=== PATIENT | female | born 1950 | race Caucasian/White ===

== ENCOUNTER → 2023-12-28 13:56 | Outpatient (BNVA) | payer MEDICARE, SELFPAY | PROVIDERS: PCP Physician Assistant Medical; Referring Provider Physician Assistant Medical; Visit Provider Nurse Practitioner Adult Health | DX: R41.89 Other symptoms and signs involving cognitive functions and awareness (principal) | CPT/HCPCS: 99205 ==

== ENCOUNTER → 2024-03-28 09:15 | Outpatient (BNVA) | payer MEDICARE, SELFPAY | PROVIDERS: PCP Physician Assistant Medical; Referring Provider Physician Assistant Medical; Visit Provider Nurse Practitioner Adult Health | DX: R41.89 Other symptoms and signs involving cognitive functions and awareness (principal) ==

== ENCOUNTER → 2024-04-05 13:33 | Outpatient (BNVA) | payer MEDICARE, SELFPAY | PROVIDERS: PCP Physician Assistant Medical; Referring Provider Physician Assistant Medical; Visit Provider Nurse Practitioner Adult Health | DX: R41.89 Other symptoms and signs involving cognitive functions and awareness (principal) | CPT/HCPCS: 99215 ==

== ENCOUNTER → 2024-05-30 09:55 | Outpatient (BNVA) | payer MEDICARE, SELFPAY | PROVIDERS: PCP Physician Assistant Medical; Referring Provider Physician Assistant Medical; Visit Provider Physician Assistant Surgical | DX: R06.00 Dyspnea, unspecified (principal); R41.89 Other symptoms and signs involving cognitive functions and awareness | CPT/HCPCS: 99215 ==

== ENCOUNTER → 2024-06-26 10:24 | Outpatient (BNVA) | payer MEDICARE, SELFPAY | PROVIDERS: PCP Physician Assistant Medical; Referring Provider Physician Assistant Medical; Visit Provider Physician Assistant Surgical | DX: R06.00 Dyspnea, unspecified (principal); R41.89 Other symptoms and signs involving cognitive functions and awareness | CPT/HCPCS: 99215 ==

== ENCOUNTER 2024-07-06 03:20 | Outpatient (CLI) | payer MEDICARE, SELFPAY ==
--- NOTE | 2024-07-10 14:22 | PDOC.EEG_ITS ---
Neurology EEG EEG: [facility] Department of Neurology LONG-TERM AMBULATORY EEG REPORT Date of Recordin07/06/24 at 13:39:37 to 07/07/24 at 10:32:46 Interpreting Physician: Dr. Janice Simons PCP/Referring Provider: Mily Marinelli NP Reason for study: Ms. Shepard has been having spells in which she is staring and unaware of her surroundings, concerning for seizure. Current Medications: Home Medications ?Medication ?Instructions ?Recorded ?Confirmed ?Type L.acidoph, paracasei,B. lactis 10 cell PO DAILY 07/15/23 04/05/24 History billion cell capsule (Digestive Advantage Advanced Probiotic) acetaminophen 325 mg tablet 325 mg PO ONCE PRN 07/15/23 06/26/24 History (Tylenol) apixaban 5 mg tablet (Eliquis) 5 mg PO BID 07/15/23 06/26/24 History cholecalciferol (vitamin D3) 25 25 mcg PO DAILY 07/15/23 05/30/24 History mcg (1,000 unit) capsule diltiazem HCl 120 mg 120 mg PO DAILY 07/15/23 06/26/24 History capsule,extended release 12 hr diltiazem HCl 60 mg 60 mg PO DAILY 07/15/23 05/30/24 History capsule,extended release 12 hr folic acid 1 mg tablet 1 mg PO DAILY 07/15/23 06/26/24 History levothyroxine 50 mcg capsule 50 mcg PO DAILY 07/15/23 06/26/24 History multivitamin 1 tab PO DAILY 07/15/23 06/26/24 History omega 2-zvp-udu-fish oil 1,200 mg cap PO DAILY 07/15/23 06/26/24 History (144 mg-216 mg) capsule propranolol 20 mg tablet 20 mg PO TID 07/15/23 06/26/24 History tolterodine 4 mg capsule,extended 4 mg PO DAILY 07/15/23 05/30/24 History release 24 hr lorazepam 0.5 mg tablet 0.5 mg PO DAILY PRN anxiety #2 tabs 12/28/23 05/30/24 Rx rivastigmine 4.6 mg/24 hour 4.6 mg transdermal DAILY 12/29/23 06/26/24 History transdermal patch vortioxetine 10 mg tablet 10 mg PO DAILY 03/28/24 06/26/24 History (Trintellix) duloxetine See Rx Instructions PO DIRECTED 05/01/24 History buspirone See Rx Instructions .Route 05/30/24 06/26/24 History DIRECTED levalbuterol tartrate 45 2 inh inhalation Q6H #15 grams 05/30/24 06/26/24 Rx mcg/actuation aerosol inhaler quetiapine 25 mg tablet 25 mg PO BID 06/26/24 06/26/24 History METHODS: An 18-channel digitized electroencephalogram was recorded in the ambulatory setting with video. The 10/20 international system of electrode placement was used and bipolar and referential electrode montages were recorded. In addition to EEG the patient was monitored for EKG and by video. Activation procedures of photic stimulation and hyperventilation were performed if applicable. The duration of the recording was ~20.5 hours. DESCRIPTION OF EEG: Waking background activity: During maximal wakefulness a 10-Hz posterior background rhythm was present which was well-modulated, symmetrical, reactive to eye opening, and of moderate voltage. Faster frequencies were present in the bilateral anterior head regions. There was a normal anterior-posterior voltage gradient. Drowsy and sleeping background activity: During drowsiness, there was attenuation of the posterior dominant background rhythm and vertex waves. Normal stage II and III sleep was present with symmetrical sleep spindles, K- complexes, and vertex waves with slowing of the background rhythm to delta/theta frequencies. REM sleep manifested by rapid lateral eye movements and faster background rhythms was recorded. Arousal was unremarkable. Interictal abnormalities: There were occasional, high-amplitude, single, left temporal sharp waves with multiple phase reversals. These were not clearly epileptiform. Ictal findings: No events recorded. Activating Procedures: Photic stimulation was performed which produced no posterior driving response. Hyperventilation was not performed. EKG: EKG revealed normal sinus rhythm. INTERPRETATION: This long-term EEG is normal during the awake and sleep states as well as during the activation procedure. No events were captured. PRIOR EEG: none CLINICAL CORRELATION: No focal regions of cerebral dysfunction or epileptiform activity was present. Epilepsy remains a clinical diagnosis and a normal EEG does not rule out epilepsy. Clinical correlation is advised. Janice Simons MD Date of service: 07/06/24
== END 2024-07-06 03:21 | disposition home or self-care (01) ==
LOC: RT 03:20
PROVIDERS: PCP Physician Assistant Medical; Visit Provider Nurse Practitioner Adult Health
DX: R40.4 Transient alteration of awareness (principal); R68.89 Other general symptoms and signs
CPT/HCPCS: 95714; 95720

== ENCOUNTER 2025-02-28 08:23 | Outpatient (CLI) | payer MEDICARE, SELFPAY ==
--- NOTE | 2025-02-28 08:15 | RT.EKG_ITS ---
APPROVED REPORT Exam: Resting ECG Reason for Exam: afib Patient Location: O HR:71 bpm ECG Measurements Heart Rate 71 AXIS GA 141 P [id number] QRSd 137 QRS -33 QT 420 T -28 QTc 457 Conclusion Atrial-paced complexes...other complexes also detected Right bundle branch block...QRSd>120, terminal axis(90,270) LVH with IVCD and secondary repol abnrm...multi-criteria, wQRSd, abnr ST-T Baseline wander in lead(s) V5
== END 2025-02-28 08:24 | disposition home or self-care (01) ==
LOC: DI.CARD 08:25
PROVIDERS: PCP Physician Assistant Medical; Visit Provider Registered Nurse
DX: I25.10 Atherosclerotic heart disease of native coronary artery without angina pectoris (principal); I49.5 Sick sinus syndrome; I48.91 Unspecified atrial fibrillation; I45.10 Unspecified right bundle-branch block
CPT/HCPCS: 93010

== ENCOUNTER → 2025-02-28 08:57 | Outpatient (BNVA) | payer MEDICARE, SELFPAY | PROVIDERS: PCP Physician Assistant Medical; Referring Provider Physician Assistant Medical; Visit Provider Registered Nurse | DX: Z45.018 Encounter for adjustment and management of other part of cardiac pacemaker (principal); I25.10 Atherosclerotic heart disease of native coronary artery without angina pectoris; I48.91 Unspecified atrial fibrillation; I49.5 Sick sinus syndrome | CPT/HCPCS: 93280; 93005 ==